=== PATIENT | male | born 1960 | race Caucasian/White ===

== ENCOUNTER → 2023-11-27 06:35 | Day surgery (SDC) | payer BC, SELFPAY | LOC: GI 06:35 | PROVIDERS: ATTENDING PHYSICIAN Specialist | DX: Z12.11 Encounter for screening for malignant neoplasm of colon (principal); Z86.0101 Personal history of adenomatous and serrated colon polyps; R12 Heartburn; K31.7 Polyp of stomach and duodenum; K22.89 Other specified disease of esophagus; K62.1 Rectal polyp; K63.5 Polyp of colon; K20.90 Esophagitis, unspecified without bleeding | CPT/HCPCS: 45385; 45380; 43239; 88305 ==